=== PATIENT | female | born 1945 | race Caucasian/White ===

== ENCOUNTER 2024-12-15 16:18 | Emergency (ER) | payer MEDICARE, MEDICAID, SELFPAY ==
[2024-12-15 16:55] VITALS: BP 157/62; PULSE 74; RESP 16; TEMP 37.6; O2SAT 95; BMI 19.7
--- NOTE | 2024-12-15 17:06 | XR_ITS ---
Examination: CT brain head without contrast. 2-D sagittal coronal reconstructions Date and time of exam:December 15, 2024 1751 hours INDICATIONS: Multiple falls today with intravenous, head pain CTDI: vol (mGy):42.1 DLP: (mGycm):840 Technique: Multiple CT axial sections of the brain have been obtained, 5 mm slice thickness. Contrast has not been administered. 2-D sagittal, coronal reconstructions have been obtained Low dose protocols were performed. One or more of the following dose reduction techniques were used; automated exposure control, adjustment of the mA and/or KV according to patient size, use of iterative reconstruction technique. Findings: No significant ventricular enlargement. Hyperdense 13 x 19 x 13 mm anterior parafalcine mass consistent with meningioma Intra-axial or extra-axial hemorrhage density is not seen. No mass effect or midline shift Basal cisterns are not remarkable. Fourth ventricle is midline. Cranial vault intact. Impression: Negative for acute hemorrhage, mass effect or midline shift 13 x 19 x 13 mm anterior parafalcine mass consistent with meningioma, recommend brain MRI MRA follow-up PA and postcontrast
--- NOTE | 2024-12-15 17:06 | XR_ITS ---
Examination: Left knee 2 views TECHNIQUE: AP lateral left knee 2 views. Exam date and time: December 15, 2024, 1739 hours. INDICATIONS: Patient fell yesterday with injury to the knee, knee pain. FINDINGS: Moderate osteopenia. No fracture or dislocation. IMPRESSION: No fracture or dislocation.
--- NOTE | 2024-12-15 17:07 | PD.EDFALL ---
ED Fall Injury RME/HPI General Chief Complaint: Fall Stated Complaint: MULTIPLE FALLS, UNSTEADY, LEFT KNEE PAIN , Time Seen by Provider: 12/15/24 16:31 Arrival date/time: 12/15/24 16:18 RME / HPI RME / HPI Narrative: 79-year-old female patient came in for evaluation regarding fall. Patient is complaining of pain to the left knee, actually patient fell 3 times a day. Denies any neck pain patient is alert and oriented no LOC. No vomiting noted. Patient is ambulatory. Family is concerned about recent fall. Related Data Home Medications ?Medication ?Instructions ?Recorded ?Confirmed sertraline 50 mg tablet (Zoloft) 50 mg PO HS #0 tabs 01/24/14 08/15/22 esomeprazole magnesium 40 mg 40 mg PO QDAY 08/27/19 08/15/22 capsule,delayed release calcium 600 mg (as 1 tab PO BID 08/15/22 08/15/22 carbonate)-vitamin D3 10 mcg (400 unit) tablet oxybutynin chloride 5 mg tablet 1 tab PO BID 08/15/22 08/15/22 Allergies Allergy/AdvReac Type Severity Reaction Status Date / Time No Known Allergies Allergy Verified 12/15/24 16:19 Review of Systems Review of Systems Narrative Review of Systems: Review of system reviewed and within normal limits except mentioned in HPI ED Exam Narrative Physical exam: VITAL SIGNS: Reviewed. GENERAL APPEARANCE: Alert and interactive, follows commands, no acute distress, HEAD AND FACE: Non-traumatic. ENT: PERRL, pink conjunctivitis, eyelid no trauma, Mucous membrane moist. NECK: Supple, nontender, no nuchal rigidity. CHEST: No tenderness, no crepitus, no paradoxical movement, no retractions. LUNGS: Clear, well ventilated, symmetric, no rales, no wheezing, no ronchi, no stridor, good breath sounds bilaterally. HEART: Regular rate, regular rhythm, no murmur, no gallops. ABDOMEN: Soft, positive bowel sounds, nondistended, no guarding, nontender, no rebound, no masses, RECTAL: Deferred. GENITAL: Deferred. NEUROLOGICAL: Gross motor function intact sensory function intact, Appropriate for age. MUSCULOSKELETAL: low back nontender, full range of motion. EXTREMITIES: Left knee tenderness full range of motion. SKIN: Color pink, dry, no rash, no lacerations, no abrasions, no contusions. LYMPHATICS: Deferred. Course Quality Measures none Orders Category Date Time Status CT head/brain wo con Stat Exams 12/15/24 17:06 Completed XR knee limited LT 2V Stat Exams 12/15/24 17:06 Completed UA, C/S IF [Urinalysis, C/S if Indicated] Stat Lab 12/15/24 18:20 Received Vital Signs Vital signs: Vital Signs Temperature 99.7 F 12/15/24 16:55 Pulse Rate 74 12/15/24 16:55 Respiratory Rate 16 12/15/24 16:55 Blood Pressure 157/62 H 12/15/24 16:55 Pulse Oximetry (%) 95 12/15/24 16:55 Oxygen Delivery Method Room Air 12/15/24 16:55 Fall MDM Narrative MDM Narrative:: 79-year-old female patient came in for evaluation regarding fall. Patient is complaining of pain to the left knee, actually patient fell 3 times a day. Denies any neck pain patient is alert and oriented no LOC. No vomiting noted. Patient is ambulatory. Family is concerned about recent fall. CT scan of the head came back unremarkable except for incidental finding of possible meningioma. Results discussed with the patient and her caregiver and told him to follow-up closely with neurosurgeon. X-ray of the knee is negative for any acute pathology. Patient data External records reviewed:: None Clinical information provided by:: patient Social determinants that could affect healthcare access:: none Patient has the following chronic illnesses:: Dementia How is presenting disease/condition affected by chronic disease/condition?: exacerbated by Evaluation data The following diagnostics were reviewed and interpreted by me:: lab results and radiology exam(s) Lab and/or radiology exams considered but not ordered:: None Interpretation Summary: see results in MDM see results in MDM Medications / Prescriptions Medications or Prescriptions considered but not ordered:: None Medication administrations:: None Consultations Consultation(s) initiated? (list below): No Diagnosis Fall Differential Diagnosis: other (Fall, knee contusion knee fracture, intracranial bleed) Most likely diagnosis given after review of the tests above:: Fall, knee contusion, incidental finding meningioma brain Admission Indicated Admission indicated?: not indicated Admission Request Was there a request for admission?: No Admission Attestation Admission request attestation: Stable Disposition Plan Disposition Plan: Discharge Discharge Attestation Discharge Attestation: The patient and all family members were given an opportunity to ask questions and understood the discharge instructions. Discharge instructions specifically effects, indications for sooner follow up or return to the emergency department, and the expected course of current diagnosis. Patient condition: Stable Discharge Plan Plan Patient Disposition: HOME (Self Care) Disposition Comment: Stable Prescriptions/Referrals Prescriptions/Med Rec: No Action sertraline [Zoloft] 50 MG tablet 50 mg PO HS Qty: 0 esomeprazole magnesium 40 mg Capsule,Delayed Release(Dr/Ec) 40 mg PO QDAY oxybutynin chloride 5 mg tablet 1 tab PO BID Patient Comments: TAKE 1 TABLET BY MOUTH TWICE A DAY calcium carbonate-vitamin D3 600 mg-10 mcg (400 unit) tablet 1 tab PO BID Patient Comments: TAKE 1 TABLET BY MOUTH TWICE A DAY Referrals: No Primary/Family,Physician [Primary Care Provider] - In 1 week Problem List Clinical Impression: Fall, Contusion of knee, Meningioma Patient/Caregiver Discharge Instructions Discharge Activity: activity as tolerated Education Materials: ED Fall with Uncertain Cause Additional Instructions: Thank you for the opportunity for serving you today. You are stable for discharged . You are advised to: Follow-up with your PCP in 1 to 2 days Return to ED for worsening of symptoms Increase oral fluids As your PCP to refer you to a neurosurgeon regarding your possible meningioma incidental finding in CT scan. Print Language: Bulgarian Stand Alone Forms: Zina Award Info., Patient Portal Info Letter PA/BLANCO Supervising Physician GELA/BLANCO Supervising Physician: MD Hector
[2024-12-15 19:15] LABS: Collection Type, Urine Clean Catch
[2024-12-15 20:18] LABS: Bilirubin,Urine Negative (Negative); Blood,Urine 3+ (Negative); Clarity,Urine Clear (Clear/Hazy); Color,Urine Yellow (Lt Yel-Yel); Culture Indicated,Urine Yes; Glucose, Urine Negative (Negative); Hyaline Casts,Urine < 1 /hpf (0-1); Ketones,Urine Negative (Negative); Leukocyte Esterase,Urine Positive (Negative); Nitrite,Urine Negative (Negative); Protein,Urine 3+ (Neg - Trace); RBC,Urine 30 /hpf (0-3); Specific Gravity,Urine 1.028 (1.001-1.035); Squamous Epithelial Cell,Urine 2 /hpf (0-5); Urobilinogen,Urine Negative mg/dL (0.0-1.0); WBC,Urine 11 /hpf (0-5)
[2024-12-15 20:24] VITALS: RESP 18
== END 2024-12-15 20:25 | disposition home or self-care (01) ==
PROVIDERS: Nurse Practitioner Family; Emergency Provider Emergency Medicine
DX: S80.02XA Contusion of left knee, initial encounter (principal); D32.0 Benign neoplasm of cerebral meninges; W19.XXXA Unspecified fall, initial encounter; R29.6 Repeated falls
CPT/HCPCS: 70450; 73560; 81001; 87086; 99284

== ENCOUNTER 2024-12-16 11:08 | Emergency (ER) | payer MEDICARE, MEDICAID, SELFPAY ==
[2024-12-16 11:27] VITALS: BP 160/71; PULSE 68; RESP 18; TEMP 37.4; O2SAT 97; BMI 19.7
--- NOTE | 2024-12-16 11:33 | XR_ITS ---
Examination: CT brain head without contrast. 2-D sagittal coronal reconstructions Date and time of exam:December 16, 2024 at 1223 hours Comparison December 15, 2024 INDICATIONS: Patient fell today with injury to the head, head pain CTDI: vol (mGy):42.2 DLP: (mGycm):844 Technique: Multiple CT axial sections of the brain have been obtained, 5 mm slice thickness. Contrast has not been administered. 2-D sagittal, coronal reconstructions have been obtained Low dose protocols were performed. One or more of the following dose reduction techniques were used; automated exposure control, adjustment of the mA and/or KV according to patient size, use of iterative reconstruction technique. Findings: No significant ventricular enlargement. No change in 13 x 19 x 13 mm anterior parafalcine meningioma Intra-axial or extra-axial hemorrhage density is not seen. No mass effect or midline shift Basal cisterns are not remarkable. Fourth ventricle is midline. Cranial vault intact. Impression: Negative for acute hemorrhage, mass effect or midline shift
--- NOTE | 2024-12-16 11:34 | PD.EDRME ---
Rapid Medical Screening Exam E Arrival date/time: 12/16/24 11:08 79-year-old female with a history of developmentally delayed presents to the emergency room with a chief complaint of a fall that occurred this morning in which she hit the right side of her head. Patient was seen here yesterday as well for a fall that occurred yesterday. I have greeted and performed a focused initial assessment of this patient. A comprehensive ED assessment and evaluation of the patient, analysis of all test results, and completion of the medical decision making process will be conducted by additional ED providers. Chief Complaint: Fall Vital signs: Vital Signs Temperature 99.3 F 12/16/24 11:27 Pulse Rate 68 12/16/24 11:27 Respiratory Rate 18 12/16/24 11:27 Blood Pressure 160/71 H 12/16/24 11:27 Pulse Oximetry (%) 97 12/16/24 11:27 Oxygen Delivery Method Room Air 12/16/24 11:27 Vital signs reviewed by provider: Yes
--- NOTE | 2024-12-16 11:59 | PD.EDFALL ---
ED Fall Injury RME/HPI General Chief Complaint: Fall Stated Complaint: SEEN YESTERDAY FOR FALL; FELL AGAIN ON FACE Time Seen by Provider: 12/16/24 11:38 Arrival date/time: 12/16/24 11:08 RME / HPI RME / HPI Narrative: 12/16/24 11:08 79-year-old female with a history of developmentally delayed presents to the emergency room with a chief complaint of a fall that occurred this morning in which she hit the right side of her head. Patient was seen here yesterday as well for a fall that occurred yesterday. I have greeted and performed a focused initial assessment of this patient. A comprehensive ED assessment and evaluation of the patient, analysis of all test results, and completion of the medical decision making process will be conducted by additional ED providers. This section includes all my notes and documentations, including HPI, PE, and ED course.? Agustín Vera MD HPI: 79 year old female with history of schizoaffective disorder, developmental delay, presents to the ED brought in by caregiver for evaluation after fall today. Caregiver reports at baseline the patient is steady on her feet however in the last 2 days has had 4 falls, last fell this morning while in the restroom. Caregiver reports the patients roommate had witnessed the fall and stated she slipped, hitting her head on the bathroom floor. Evidently was also evaluated here last night after falling and was discharged home after labs and imaging was performed. Caregiver adds the patient just completed a course of antibiotics 2 days ago for a UTI. No other complaints. ROS: All negative except as documented in HPI. Physical Exam: General:? Alert and oriented.? No acute distress when remaining still.?? Eyes:? Conjunctivae and lids clear.? ENT:? No nasal congestion.??Pharynx normal. TM normal bilaterally. Neck:? Supple.? Heart:? RRR.? Lungs:? No respiratory distress.? Good air movement.? No rhonchi, wheezing, rales.?? Chest: No tenderness. Abdomen:? Soft and nontender.?? Legs:? No clubbing, cyanosis, edema.? Skin:? Warm and dry.??Facial ecchymoses noted, varying size and shape. Neuro:? Alert and oriented X 3.??Cranial nerves II through XII grossly normal. No peripheral motor deficits. Musculoskeletal: All major joints and bones are not tender with no limited range of motion. I reviewed all diagnostic test results. My interpretation of the EKG is?NSR (63 bpm) with no ST-T changes. My interpretation of the chest x-ray is No lobar pneumonia or pulmonary edema. My review of the head CT report is?negative for acute hemorrhage, mass effect or midline shift. My review of the cervicle spine CT report is?No acute cervical fracture. My review of the face CT report is?No acute facial fracture. My review of the lumbar spine CT report is?No acute lumbar fracture. My review of the thoracic spine CT report is?No acute thoracic fracture. My review of the chest/abdomen/pelvis CT report is No hemopericardium, pneumothorax pulmonary contusion or hemothorax. My review of the pelvic ultrasound report is right ovarian cyst. Blood tests and urine tests?remarkable for positive influenza and UTI. At this point, diagnoses include?influenza, UTI. Treatment here included?IV fluid and Rocephin and Tamiflu. She remained stable. Recommended a trial of outpatient treatment and more outpatient workup, including for the right ovarian cyst. Based on my best medical judgment, made decision no further evaluation or treatment indicated at this time.? Staff understands and agrees to the discharge instructions customized and printed, see below. Discharge Instructions from Dr. Vera printed for you: 1. After extensive evaluation, fortunately there is no very serious injury. Such as brain injury or broken neck or broken back or other broken bone or internal organ injury. And there is no life-threatening condition. Such as stroke or brain tumor or heart attack. 2. We have UTI and influenza. Which can make elderly very, very sick, causing them to fall. Cefdinir and Tamiflu as prescribed. And prednisone which will help her appetite and get her stronger. 3. So no standing or walking alone and no physical activity through 12/19/2024. 4. Regular nutritious meals. For good hydration, increase oral fluid and maintain clear urine. If dark or yellow, increase oral fluid. 5. See a private doctor on 12/20/2024 for recheck and further care. Ask to review all test results and official radiology reports, to make sure you receive all necessary follow-ups and monitoring, including urine culture results and ultrasound report from today. 6. Seek immediate medical care with worsening or with any concerns. Agustín Vera MD Related Data Home Medications ?Medication ?Instructions ?Recorded ?Confirmed sertraline 50 mg tablet (Zoloft) 50 mg PO HS #0 tabs //08/15/22 esomeprazole magnesium 40 mg 40 mg PO QDAY 08/27/19 08/15/22 capsule,delayed release calcium 600 mg (as 1 tab PO BID 08/15/22 08/15/22 carbonate)-vitamin D3 10 mcg (400 unit) tablet oxybutynin chloride 5 mg tablet 1 tab PO BID 08/15/22 08/15/22 Previous Rx's ?Medication ?Instructions ?Recorded cefdinir 300 mg capsule 300 mg PO BID #14 caps 12/16/24 oseltamivir 75 mg capsule (Tamiflu) 75 mg PO BID 5 days #10 caps 12/16/24 prednisone 20 mg tablet 20 mg PO QDAY 5 days #5 tabs 12/16/24 Allergies Allergy/AdvReac Type Severity Reaction Status Date / Time No Known Allergies Allergy Verified 12/16/24 11:10 Review of Systems Review of Systems Systems Reviewed: All systems reviewed, normal except as documented Past Medical History Past Medical History GASTROINTESTINAL: Positive Gastrointestinal Disorders (Dysphagia) GENITOURINARY: Positive Genitourinary Disorders (incont.) MUSCULOSKELETAL: Positive Musculoskeletal Disorders and Osteoporosis ENT: Positive Cataracts and Deafness (wears hearing aids) OTHER HISTORY: Positive Developmental Delay Surgical History SURGICAL: Negative Cardiac Surgery or Endocrine Surgery Social History SMOKING STATUS: Never smoker ED Exam Narrative Physical exam: As noted in HPI Course Quality Measures none Orders Category Date Time Status Bedside COVID-19 Antigen Test NOW Care 12/16/24 12:11 Completed Bedside Influenza A&B Antigen Test NOW Care 12/16/24 12:[address] Screening NOW Care 12/16/24 12:12 Completed EKG (ED ONLY) *Do not use* NOW Care 12/16/24 11:33 Completed Saline [Insert IV] NOW Care 12/16/24 12:[address] cervical spine wo con Stat Exams 12/16/24 12:[address] chest abdomen pelvis wo Stat Exams 12/16/24 12:[address] facial bones wo con Stat Exams 12/16/24 12:[address] head/brain wo con Stat Exams 12/16/24 11:[address] lumbar spine wo con Stat Exams 12/16/24 12:[address] thoracic spine wo con Stat Exams 12/16/24 12:12 Completed EKG (ED Only) Stat Exams 12/16/24 11:33 Ordered US pelvic complete Stat Exams 12/16/24 13:37 Completed XR chest 1V portable Stat Exams 12/16/24 12:12 Completed B-Type Natriuretic Peptide Stat Lab 12/16/24 13:16 Completed Blood Culture (Lab) Stat Lab 12/16/24 13:16 Received C-Reactive Protein Stat Lab 12/16/24 13:16 Completed CBC Stat Lab 12/16/24 13:16 Completed Comprehensive Metabolic Panel Stat Lab 12/16/24 13:16 Completed Lactate (Lactic Acid) Stat Lab 12/16/24 13:16 Completed Magnesium Stat Lab 12/16/24 13:16 Completed Partial Thromboplastin Time Stat Lab 12/16/24 13:16 Completed Procalcitonin Stat Lab 12/16/24 13:16 Completed Prothrombin Time with INR Stat Lab 12/16/24 13:16 Completed Sed Rate (ESR) Stat Lab 12/16/24 13:16 Completed Thyroid Stimulating Hormone Stat Lab 12/16/24 13:16 Completed Troponin I Stat Lab 12/16/24 13:16 Completed Oseltamivir [Tamiflu] Med 12/16/24 14:20 Discontinued 75 mg PO X1 ONE Sodium Chloride 0.9% 1000 ml [Ns] 1,000 ml Med 12/16/24 12:10 Discontinued IV 999 mls/hr cefTRIAXone [Rocephin] 1,000 mg Med 12/16/24 12:10 Discontinued Sodium Chloride 0.9% (P) [Ns 0.9% (P)] 50 ml IV X1 Vital Signs Vital signs: Vital Signs Temperature 99.3 F 12/16/24 11:27 Pulse Rate 68 12/16/24 11:27 Respiratory Rate 18 12/16/24 11:27 Blood Pressure 160/71 H 12/16/24 11:27 Pulse Oximetry (%) 97 12/16/24 11:27 Oxygen Delivery Method Room Air 12/16/24 11:27 Pulse ox is 97% on room air which is adequate. Fall MDM Narrative MDM Narrative:: Agustina Coats am scribing for and in the presence of Dr. Vera. Patient data External records reviewed:: [facility] previous records (I reviewed yesterdays ED visit ) Clinical information provided by:: industrial technology teacher Social determinants that could affect healthcare access:: housing (custodial resident ) Patient has the following chronic illnesses:: schizoaffective disorder, developmental delay How is presenting disease/condition affected by chronic disease/condition?: uneffected by Evaluation data The following diagnostics were reviewed and interpreted by me:: lab results, radiology exam(s) and EKG tracing(s) (My interpretation of the EKG: NSR (63 bpm) with no ST-T changes. Agustín Vera MD) Lab and/or radiology exams considered but not ordered:: None Interpretation Summary: Influenza and UTI and right ovarian cyst Medications / Prescriptions Medications or Prescriptions considered but not ordered:: None Medication administrations:: Medication Administration History Discontinued Medications Ceftriaxone Sodium 1,000 mg/ (Sodium Chloride) 50 mls @ 100 mls/hr IV X1 ONE Stop: 12/16/24 12:39 Last Infusion: 12/16/24 14:03 Dose: Infused Documented By: Admin: 12/16/24 13:33 Dose: 100 mls/hr Documented By: JOSSELIN Sodium Chloride (Ns) 1,000 mls @ 999 mls/hr IV .Q1H1M ONE Stop: 12/16/24 13:10 Last Infusion: 12/16/24 15:39 Dose: Infused Documented By: Admin: 12/16/24 13:33 Dose: 999 mls/hr Documented By: JOSSELIN Oseltamivir Phosphate (Oseltamivir 75 Mg Capsule) 75 mg PO X1 ONE Stop: 12/16/24 14:21 Last Admin: 12/16/24 14:35 Dose: 75 mg Documented By: CAROL Patient given ceftriaxone, IV fluids, and oseltamivir Consultations Consultation(s) initiated? (list below): No Diagnosis Fall Differential Diagnosis: syncope, compression fracture, concussion with loss of consciousness, concussion without loss of consciousness and other (CVA, MD, UTI, pneumonia, sepsis) Most likely diagnosis given after review of the tests above:: Influenza, UTI Admission Indicated Admission indicated?: not indicated Explain why admission is indicated or not indicated:: Admission criteria not met Admission Request Was there a request for admission?: No Disposition Plan Disposition Plan: Discharge Discharge Attestation Discharge Attestation: The patient and all family members were given an opportunity to ask questions and understood the discharge instructions. Discharge instructions specifically effects, indications for sooner follow up or return to the emergency department, and the expected course of current diagnosis. Patient condition: Stable Discharge Plan Plan Patient Disposition: HOME (Self Care) Prescriptions/Referrals Prescriptions/Med Rec: New oseltamivir [Tamiflu] 75 mg capsule 75 mg PO BID 5 Days Qty: 10 0RF cefdinir 300 mg capsule 300 mg PO BID Qty: 14 0RF prednisone 20 mg tablet 20 mg PO QDAY 5 Days Qty: 5 0RF Taper: Prednisone Taper 20 mg DAILY for 2 Days and 0 Hour 10 mg DAILY for 2 Days and 0 Hour 5 mg DAILY for 7 Days and 0 Hour No Action sertraline [Zoloft] 50 MG tablet 50 mg PO HS Qty: 0 esomeprazole magnesium 40 mg Capsule,Delayed Release(Dr/Ec) 40 mg PO QDAY oxybutynin chloride 5 mg tablet 1 tab PO BID Patient Comments: TAKE 1 TABLET BY MOUTH TWICE A DAY calcium carbonate-vitamin D3 600 mg-10 mcg (400 unit) tablet 1 tab PO BID Patient Comments: TAKE 1 TABLET BY MOUTH TWICE A DAY Referrals: No Primary/Family,Physician [Primary Care Provider] - In 1 week Problem List Clinical Impression: Influenza, UTI (urinary tract infection) Patient/Caregiver Discharge Instructions Discharge Activity: activity as tolerated Education Materials: ED Influenza (Adult), ED CYSTITIS Female Adult Additional Instructions: Discharge Instructions from Dr. Vera printed for you: 1. After extensive evaluation, fortunately there is no very serious injury. Such as brain injury or broken neck or broken back or other broken bone or internal organ injury. And there is no life-threatening condition. Such as stroke or brain tumor or heart attack. 2. We have UTI and influenza. Which can make elderly very, very sick, causing them to fall. Cefdinir and Tamiflu as prescribed. And prednisone which will help her appetite and get her stronger. 3. So no standing or walking alone and no physical activity through 12/19/2024. 4. Regular nutritious meals. For good hydration, increase oral fluid and maintain clear urine. If dark or yellow, increase oral fluid. 5. See a private doctor on 12/20/2024 for recheck and further care. Ask to review all test results and official radiology reports, to make sure you receive all necessary follow-ups and monitoring, including urine culture results and ultrasound report from today. 6. Seek immediate medical care with worsening or with any concerns. Print Language: Brazilian Stand Alone Forms: Zina Award Info., Patient Portal Info Letter
--- NOTE | 2024-12-16 12:12 | XR_ITS ---
Examination: AP chest single view TECHNIQUE: AP portable upright chest single view Exam date and time: December 16, 2024 1255 hours INDICATIONS: Shortness of breath today FINDINGS: Normal heart size. Mild vascular congestion. No lobar pneumonia or pulmonary edema. Stable bilateral pleural thickening compared with June 26, 2021 IMPRESSION: No lobar pneumonia or pulmonary edema
--- NOTE | 2024-12-16 12:12 | XR_ITS ---
Examination: CT maxillofacial, without intravenous contrast. 2-D sagittal reconstructions. 3-D reconstructions. Date and time of exam:December 16, 2024 1223 hours INDICATIONS: Patient fell today with injury to the face, facial pain CTDI: vol (mGy):12.8 DLP: (mGycm):218 Technique: Multiple axial images of maxillofacial region, 3.0 mm slice thickness. 2-D sagittal and coronal reconstructions. 3-D reconstructions. Low dose protocols were performed. One or more of the following dose reduction techniques were used; automated exposure control, adjustment of the mA and/or KV according to patient size, use of iterative reconstruction technique. Findings: Frontal bone frontal sinuses intact Orbital rims intact No acute nasal bone fracture No depression zygomatic arches. Maxilla and the mandible intact. Soft tissue swelling anterior to the right optic globe, the optic globes appear intact IMPRESSION: No acute facial fracture
--- NOTE | 2024-12-16 12:12 | XR_ITS ---
Examination: CT thoracic spine, without contrast. 2-D sagittal reconstructions. 2-D coronal reconstructions. 3-D reconstructions. Date and time of exam:December 16, 2024 1228 hours INDICATIONS: Patient fell today with injury to the mid back and mid back pain CTDI: vol (mGy):10.4 DLP: (mGycm):295 Technique: Multiple 1.25 mm axial sections of the thoracic spine without intravenous contrast have been obtained. 2-D sagittal and coronal reconstructions have been obtained. 3-D reconstructions have been obtained. Low dose protocols were performed. One or more of the following dose reduction techniques were used; automated exposure control, adjustment of the mA and/or KV according to patient size, use of iterative reconstruction technique. Findings: Prominent osteopenia No acute thoracic vertebral body compression fracture Thoracic pedicles laminated transverse and posterior spinous processes appear intact No focal thoracic disc protrusion IMPRESSION: No acute thoracic fracture
--- NOTE | 2024-12-16 12:12 | XR_ITS ---
Examination: CT cervical spine without contrast 2-D sagittal reconstructions 2-D coronal reconstructions 3-D reconstructions. Exam date and time:December 16, 2024 1232 hours INDICATIONS: Patient fell today with into the neck, neck pain CTDI:vol (mGy) 11.1 DLP: (mGycm) 236 Technique: Multiple 2 mm axial sections of the cervical spine have been obtained. The coronal and sagittal reconstructions have been obtained. 3-D reconstructions have been obtained. Low dose protocols were performed. One or more of the following dose reduction techniques were used; automated exposure control, adjustment of the mA and/or KV according to patient size, use of iterative reconstruction technique. Findings: Axial sections demonstrate intact base of the skull. C1 exhibit satisfactory relationship to the odontoid. No acute cervical vertebral body fracture seen. Alignment posterior spinous processes satisfactory. Impression: No acute cervical fracture.
--- NOTE | 2024-12-16 12:12 | XR_ITS ---
Examination: CT lumbar spine, without contrast. 2-D sagittal reconstructions. 2-D coronal reconstructions. 3-D reconstructions. Date and time of exam:December 16, 2024 1228 hours INDICATIONS: Patient fell today with injury to the lower back, lower back pain CTDI: vol (mGy):13.2 DLP: (mGycm):407 Technique: Multiple 1.25 mm axial sections of the lumbar spine without intravenous contrast have been obtained. 2-D sagittal and coronal reconstructions have been obtained. 3-D reconstructions have been obtained. Low dose protocols were performed. One or more of the following dose reduction techniques were used; automated exposure control, adjustment of the mA and/or KV according to patient size, use of iterative reconstruction technique. Findings: Severe osteopenia No thoracic vertebral body compression fracture Thoracic pedicles, laminae, transverse and posterior spinous processes intact L5-S1 2 mm central lumbar disc bulge L4-L5 5 mm central lumbar disc bulge L3-L4 no disc protrusion L2-L3 no disc protrusion IMPRESSION: No acute lumbar fracture
--- NOTE | 2024-12-16 12:15 | XR_ITS ---
Examination: CT chest, without intravenous contrast. CT abdomen, without intravenous contrast. CT pelvis, without intravenous contrast. 2-D sagittal and coronal reconstructions. 3-D reconstructions. Date and time of exam:December 16, 2024 1228 hours INDICATIONS: Patient fell today with injury to the chest and abdomen, chest pain abdomen pain CTDI vol (mgy) 6.02 DLP (MGycm)402 Technique: Multiple CT images, 3.0 mm slice thickness, obtained chest, abdomen, pelvis, with the high-resolution 64 slice scanner.. Sagittal and coronal 2-D reconstructions are obtained. 3-D reconstructions Low dose protocols were performed. One or more of the following dose reduction techniques were used; automated exposure control, adjustment of the mA and/or KV according to patient size, use of iterative reconstruction technique. Findings: Thoracic aorta pulmonary arteries appear intact on this noncontrast study No hemopericardium No pneumothorax pulmonary contusion or hemothorax 3 mm pulmonary nodule left lower lobe image 161 4 mm pulmonary nodule right lower lobe image 165 The manubrium and the body the sternum are intact No thoracic fracture Rib detail is significantly degraded by patient motion No rib fractures noted No liver splenic or renal laceration, no perinephric hematoma No gallstones No pancreatic mass Abdominal aortic calcification aorta appears intact No free blood in the abdomen Negative for pneumoperitoneum No bowel obstruction Colonic diverticulosis Right pelvic cystic mass 7.7 cm Atrophic uterus Urinary bladder intact No lumbar fracture Sacral segments. Axial image 379 suspicious for nondisplaced fracture right inferior pubic ramus Hips intact IMPRESSION: Noncalcified pulmonary nodules as above, with this study as baseline recommend 6 month follow-up CT chest without contrast Thoracic aorta pulmonary arteries intact No hemopericardium, pneumothorax pulmonary contusion or hemothorax No abdominal parenchymal laceration Abdominal aorta intact No free blood in the abdomen or pelvis 7.7 cm right pelvic cystic mass, consider pelvic sonography follow-up Suspicious for nondisplaced fracture right inferior pubic ramus, the appearance should be clinically correlated
[2024-12-16 13:29] LABS: Lactate (Lactic Acid) 0.7 mMol/L (0.4-2.0)
[2024-12-16] MEDS: SODIUM CHLORIDE 0.9% 1000 ML 1,000 ML 999 ML IV (13:33)
[2024-12-16] MEDS: cefTRIAXone 1,000 MG in SODIUM CHLORIDE 0.9% (P) 50 ML 100 MG IV (13:33)
[2024-12-16 13:35] LABS: Basophils % (Auto) 0 % (0-2.5); Eosinophils # (Auto) 0.1 Thou/mm3 (0.0-0.5); Eosinophils % (Auto) 1 % (0-10); Hematocrit 34.3 % (36.0-46.0); Hemoglobin 11.2 g/dL (12.0-16.0); Immature Granulocytes % (Auto) 0 % (0-0); Immature Granulocytes Auto 0.02 Thou/mm3 (0.00-0.00); Lymphocytes # (Auto) 1.2 Thou/mm3 (1.0-4.8); Lymphocytes % (Auto) 22 % (10-50); Mean Corpuscular HGB Conc 32.7 g/dl (31.0-37.0); Mean Corpuscular Hemoglobin 27.7 pg (25.0-35.0); Mean Corpuscular Volume 85 fL (80-100); Monocytes # (Auto) 0.4 Thou/mm3 (0.0-0.8); Monocytes % (Auto) 8 % (0-12); Neutrophils # (Auto) 3.7 Thou/mm3 (1.8-7.7); Neutrophils % (Auto) 68 % (37-80); Nucleated Red Blood Cell % 0 /100 WBC (0); Platelet Count 131 Thou/mm3 (140-440); RDW Standard Deviation 44.5 fL (36.4-46.3); Red Blood Count 4.05 Miln/mm3 (4.00-5.20); White Blood Count 5.4 Thou/mm3 (3.6-11.0)
--- NOTE | 2024-12-16 13:37 | XR_ITS ---
Examination: Pelvic ultrasound, transabdominal, complete Technique: Transabdominal ultrasound of the pelvis performed using grayscale imaging Date and time of exam: December 16, 2024 1400 hours INDICATIONS: Pelvic cyst on CT examination today FINDINGS: Uterus 3.4 x 1.4 x 2.7 cm Endometrial stripe 0.8 cm, fluid-filled Right ovary 8.5 x 5.2 x 5.6 cm Right ovarian cyst 7.7 x 4.3 x 4.6 cm with minimal internal debris Left ovary 2.5 x 1.7 x 2.0 cm arterial flow IMPRESSION: Large right ovarian cyst, recommend MRI pelvis follow-up pre and postcontrast, elective
--- NOTE | 2024-12-16 13:46 | PC.NURSE ---
Patient presents to ED with c/o of fall x 4 since yesterday. Patient caregiver at bedside, informed RN that patient is ambulatory without assist, alert and oriented, with hx of some mental retardation. Noted right side face bruising with and black eye. Patient denies loc and does caregiver. Patient and caregiver updated with plan of care.
[2024-12-16 13:51] LABS: Sed Rate (ESR) 34 mm/hr (0-30)
[2024-12-16 13:52] LABS: Partial Thromboplastin Time 27.9 Seconds (22.0-36.0)
[2024-12-16 13:56] VITALS: BP 172/68; PULSE 70; RESP 20; TEMP 36.9; O2SAT 98
[2024-12-16 14:05] LABS: Alanine Aminotransferase 8 U/L (10-49); Albumin, Serum 4.4 gm/dL (3.4-4.8); Albumin/Globulin Ratio 1.6 (1.2-2.2); Alkaline Phosphatase 39 U/L (46-116); Anion Gap 6 (7-16); Aspartate Amino Transferase 18 U/L (0-34); BUN/Creatinine Ratio 21 Ratio (12-20); Bilirubin,Total 0.5 mg/dL (0.3-1.2); Blood Urea Nitrogen 17 mg/dL (9-23); Calcium 9.2 mg/dL (8.3-10.6); Calcium (Corrected) 9.2 mg/dL (8.5-10.1); Carbon Dioxide 30.7 mMol/L (20.0-31.0); Chloride 97 mMol/L (98-107); Creatinine (Component) 0.8 mg/dL (0.6-1.3); Estimated Creatinine Clearance 42.7 mL/min (>60); Globulin 2.7 gm/dL (2.3-3.5); Glucose 102 mg/dL (74-106); Magnesium 1.7 mg/dL (1.6-2.6); Osmolality,Calculated 269 (275-295); Potassium 3.7 mMol/L (3.4-5.1); Procalcitonin 0.08 ng/ml (0.0-0.49); Sodium 134 mMol/L (136-145); Thyroid Stimulating Hormone 1.61 uIU/mL (0.55-4.78); Total Protein 7.1 gm/dL (5.7-8.2); Troponin I < 0.020 ng/mL (0.0-0.045); eGFR > 60 See Note
[2024-12-16 14:25] LABS: B-Type Natriuretic Peptide 116 pg/mL (0-100)
[2024-12-16] MEDS: OSELTAMIVIR 75 MG CAPSULE PO (14:35)
[2024-12-16 15:25] LABS: C-Reactive Protein < 0.4 mg/dL (0.0-0.9)
[2024-12-16 16:12] VITALS: BP 161/89; PULSE 75; RESP 16; O2SAT 95
== END 2024-12-16 16:12 | disposition home or self-care (01) ==
PROVIDERS: Nurse Practitioner Family; Emergency Provider Emergency Medicine
DX: J11.1 Influenza due to unidentified influenza virus with other respiratory manifestations (principal); N39.0 Urinary tract infection, site not specified; S00.83XA Contusion of other part of head, initial encounter; N83.201 Unspecified ovarian cyst, right side; F25.9 Schizoaffective disorder, unspecified; R29.6 Repeated falls; W01.0XXA Fall on same level from slipping, tripping and stumbling without subsequent striking against object, initial encounter
CPT/HCPCS: 36415; 70450; 70486; 71045; 71250; 72125; 72128; 72131; 74176; 76856; 80053; 81001; 83605; 83735; 83880; 84145; 84443; 84484; 85025; 85610; 85652; 85730; 86140; 87040; 87400; 87811; 93005; 96361; 96365; 99284; J0696; J7030; J7050; A9270

== ENCOUNTER → 2024-12-24 | Outpatient (CLI) | payer MEDICARE, MEDICAID, SELFPAY ==
--- NOTE | 2024-12-24 13:50 | XR_ITS ---
Examination: Bone densitometry Date and time of exam:December 24, 2024 1517 hours INDICATIONS: Menopause age 53, personal history osteoporosis Technique: Lumbar spine and hip total bone mineralization values of an calculated. Peak reference and age match control results have been displayed. Findings: Lumbar spine total bone mineralization is0.645 gm/cm2. This is 3.7 standard deviations below peak reference. This is 0.9 standard deviations below age-matched controls. Hip total bone mineralization is 0.572 gm/cm2 This is 3.0 standard deviations below peak reference. This is 0.9 standard deviations below age-matched controls Impression: There is osteoporosis based on lumbar spine measurements. There is osteoporosis based on hip measurements Lumbar mineralization is decreased 5.3% compared with January 17, 2020 Hip mineralization is decreased 2.5% compared with January 17, 2020
== END | disposition home or self-care (01) ==
LOC: CDIM 13:55
PROVIDERS: PCP Nurse Practitioner Family; Referring Provider Nurse Practitioner Family; Visit Provider Nurse Practitioner Family
DX: M81.0 Age-related osteoporosis without current pathological fracture (principal)
CPT/HCPCS: 77080

== ENCOUNTER → 2025-01-21 | Outpatient (CLI) | payer MEDICARE, MEDICAID, SELFPAY ==
--- NOTE | 2025-01-21 16:28 | XR_ITS ---
Examination: AP pelvis 2 views Technique: AP pelvis hips in neutral position, AP pelvis hips abduction position 2 views Exam date and time: 2024 1640 hrs. Indications: Hip pain today. Findings: Prominent osteopenia Moderate narrowing hip joints No right or left hip fracture Fractures right superior inferior pubic rami without displacement Bilateral greater trochanteric bursitis hips Impression: No hip fractures As clinically warranted, consider CT scan pelvis follow-up to best assess acuity of fractures, nondisplaced, right superior inferior pubic rami
== END | disposition home or self-care (01) ==
LOC: CDIM 16:24
PROVIDERS: PCP Nurse Practitioner; Referring Provider Nurse Practitioner; Visit Provider Nurse Practitioner
DX: S32.591D Other specified fracture of right pubis, subsequent encounter for fracture with routine healing (principal); X58.XXXD Exposure to other specified factors, subsequent encounter
CPT/HCPCS: 72170

== ENCOUNTER → 2025-02-09 | Outpatient (CLI) | payer MEDICARE, MEDICAID, SELFPAY ==
[2025-02-09 12:41] LABS: Alanine Aminotransferase 8 U/L (10-49); Albumin/Globulin Ratio 1.7 (1.2-2.2); Alkaline Phosphatase 40 U/L (46-116); Anion Gap 7 (7-16); Aspartate Amino Transferase 18 U/L (0-34); BUN/Creatinine Ratio 26 Ratio (12-20); Bilirubin,Total 0.4 mg/dL (0.3-1.2); Blood Urea Nitrogen 21 mg/dL (9-23); Calcium 8.9 mg/dL (8.3-10.6); Calcium (Corrected) 8.9 mg/dL (8.5-10.1); Carbon Dioxide 29.9 mMol/L (20.0-31.0); Chloride 105 mMol/L (98-107); Creatinine (Component) 0.8 mg/dL (0.6-1.3); Globulin 2.3 gm/dL (2.3-3.5); Glucose 92 mg/dL (74-106); Osmolality,Calculated 286 (275-295); Potassium 4.1 mMol/L (3.4-5.1); Sodium 142 mMol/L (136-145); Total Protein 6.3 gm/dL (5.7-8.2); eGFR > 60 See Note
== END | disposition home or self-care (01) ==
LOC: COPL 11:42
PROVIDERS: PCP Nurse Practitioner; Referring Provider Nurse Practitioner; Visit Provider Nurse Practitioner
DX: Z01.89 Encounter for other specified special examinations (principal)
CPT/HCPCS: 36415; 80053

== ENCOUNTER → 2025-02-11 | Outpatient (CLI) | payer MEDICARE, MEDICAID, SELFPAY ==
--- NOTE | 2025-02-11 10:00 | XR_ITS ---
Examination: MRI pelvis with intravenous contrast. MRI pelvis without intravenous contrast. Date and time of exam: February 03, 2025 1019 hours INDICATIONS: Pelvic sonogram December 16, 2024 right ovarian cyst 7.7 x 4.3 x 4.6 cm Technique: Multiple axial, sagittal and coronal sections of the pelvis obtained. Transverse images, TR 6020, TE 107. T1 weighted transverse images, TR 582, TE 9.5. T2-weighted sagittal images, TR 4000, TE 105. T2-weighted sagittal images, TR 4000, TE 5. Coronal images, TR 4210, TE 107. Axial and coronal images are obtained post 19 cc intravenous injection, gadolinium. Findings: Atrophic uterus with endometrial stripe 5 mm Septated right ovarian cyst 6.5 x 4.3 cm with no mural enhancement Left ovary not enlarged Contracted urinary bladder Adequate marrow signal IMPRESSION: Septated right ovarian cyst 6.5 x 4.3 cm, differential would include complex cyst, cystadenoma, clinical correlation advised
== END | disposition home or self-care (01) ==
PROVIDERS: PCP Nurse Practitioner; Referring Provider Nurse Practitioner; Visit Provider Nurse Practitioner
DX: N83.291 Other ovarian cyst, right side (principal)
CPT/HCPCS: 72197; A9579

== ENCOUNTER 2025-04-05 09:40 | Outpatient (AMB) | payer MEDICARE, MEDICAID, SELFPAY ==
--- NOTE | 2025-04-05 10:06 | ORTHONT_ITS ---
Vital signs 04/05/25 10:09 Height 1.57 m Height Method Stated Weight 45.926 kg Weight Measurement Method Standing Scale BMI 18.6 BP 186/61 H Blood Pressure Source Automatic Cuff Blood Pressure Location Left Upper Arm Position Sitting Respiration 18 Pulse 63 Pulse Source Monitor Temp 97.8 F Temp Source Temporal Artery Scan Pulse Oximetry (%) 97 Oxygen Delivery Method Room Air Med/Allergies Allergies & Medications Allergies No Known Allergies Allergy (Verified 04/05/25 10:09) Medication Reconciliation sertraline 50 mg tablet (Zoloft) 50 mg PO HS #0 tabs 01/24/14 [History Confirmed 04/05/25] calcium 600 mg (as carbonate)-vitamin D3 10 mcg (400 unit) tablet 1 tab PO BID 08/15/22 [History Confirmed 04/05/25] oxybutynin chloride 5 mg tablet 1 tab PO BID 08/15/22 [History Confirmed 0 04/05/25] omeprazole 40 mg capsule,delayed release 40 mg PO QDAY 04/05/25 [History Confirmed 04/05/25] Exam Exam Patient is in no acute distress and is cooperative with the examination today. Breathing is nonlabored. In no respiratory distress. Patient has no paraspinal tenderness. Spinal deformity cannot be appreciated. The gait of the patient is nonantalgic Bilateral extremities were evaluated and demonstrates sensation intact to light touch. Palpable pedal pulses are present. No significant edema is present. Bilateral knees were examined and the patient has full strength and range of motion.. The left hip was examined. Patient was able to flex to 90 degrees, adduct to 30 degrees, abduct to 40 degrees, internally rotate to 20 degrees, and externally rotate to 20 degrees. Patient has a negative logroll. Stinchfield is negative. The patient is nontender diffusely to touch. The right hip was examined. Patient was able to flex to 90 degrees, adduct to 30 degrees, abduct to 40 degrees, internally rotate to 20 degrees, and externally rotate to 20 degrees. Patient has a negative logroll. The stinchfield is negative. X-rays demonstrate a healed right inferior pubic ramus fracture Assessment and Plan Problem List (1) Inferior pubic ramus fracture: Status: Acute Plan: Patient is an 80-year-old female with a right inferior pubic ramus fracture. She has no pain on the right hip. It appears to be well-healed on x-ray The patient is doing well and has no pain. I do not think she needs physical therapy at this time Advanced Care Planning Discussion Advance care planning discussed with:: patient and other Office Procedures GNS Level of Care Nursing/Assessment Patient Status: Initial/New Patient Nursing Assessment/Reassesment: Medication Reconciliation, Update PMH in EMR and Vital Signs Coordination of Care: Complex Care and Chronic Disease 1-5, Education Complex Pt/Fam, Consent,records obtained, informed consent, 1 Ins Authorization, Lab and Imaging orders, Results/Orders obtained and Staff clarify orders New Patient Charge New Patient Point Assignment: 1124 New Patient Point Charge: APPLICATION ARCHITECT MANAGER Level 4 ([id number]) MA Intake Visit Data Collection New Patient or Established: New Patient (never been to [facility]) Reason for Visit:: RIGHT PUBIC FRACTURE Seen by Clinical Staff ONLY (RN/MA): No PCP or OBGYN visit in last 3 months: Yes Hx Now: No Do You Feel Safe at Home: Yes Authorities Contacted: N/A Questionairres Past Medical History Past Medical History Have you ever been diagnosed with any of the following: Neurological Problems Seizures: No Cardiology Problems Congestive Heart Failure: No Hypertension: No Respiratory Problems Chronic Obstructive Pulmonary Disease (COPD): No Asthma: No Sleep Apnea: No Smoking: No Smoking Exposure: No Genital/Urinary Problems Renal Disease: No Musculoskeletal Problems Osteoporosis: Yes Head,Eye,Nose,Throat Problems Cataracts: Yes Deafness: Yes (wears hearing aids) Endocrine Problems Diabetes Mellitus Type 1: No Diabetes Mellitus Type 2: No Blood Problems Anemia: No Other Problems Hospitalization: No Developmental Delay: Yes Falls: No Blood Transfusions: No Anesthesia Reactions: No Cancer: No Subjective Visit Visit for: new patient Immunization / Flu Flu Vaccine in the Last 12 Months: No Flu Vaccine Exclusion Criteria: No Exclusion Criteria History of Present Illness Chief complaint: Right hip pain Zohreh is a pleasant 80-year-old female with a right inferior pubic ramus fracture. She has no pain at all. This was likely from a fall in November. She has been weightbearing. Pain Pain level (0-10): 0 Associated signs & symptoms: none Ambulatory data Ambulatory device: none Treatments Improvement with previous injections: No Improvement with PT: No Improvement with NSAIDS: no Review of Systems Review of Systems: All systems negative unless otherwise noted in HPI.
[2025-04-05 10:09] VITALS: BP 186/61; PULSE 63; RESP 18; TEMP 36.6; O2SAT 97; BMI 18.6
== END 2025-04-05 10:26 | disposition home or self-care (01) ==
LOC: HODSRG 09:40
PROVIDERS: PCP Nurse Practitioner; Referring Provider Nurse Practitioner; Supervising Provider Orthopaedic Surgery Adult Reconstructive Orthopaedic Surgery; Visit Provider Orthopaedic Surgery Adult Reconstructive Orthopaedic Surgery
DX: S32.591D Other specified fracture of right pubis, subsequent encounter for fracture with routine healing (principal); X58.XXXD Exposure to other specified factors, subsequent encounter
CPT/HCPCS: 99204; G0463

== ENCOUNTER → 2025-06-08 | Outpatient (CLI) | payer MEDICARE, MEDICAID, SELFPAY ==
--- NOTE | 2025-06-08 09:15 | XR_ITS ---
Examination: Diagnostic digital mammography, bilateral Computer aided detection 3-D breast Tomosynthesis, bilateral Date and time of exam: June 08, 2025 0906 hours Compared to mammograms dating to January 11, 2019 INDICATIONS: Patient states no complaints at this time Technique: Nonmagnified MLO, CC views of the breasts to been obtained, reconstructed from 3-D Tomosynthesis images. R2 computer aided detection program utilized for evaluation of suspicious masses and/or abnormal calcifications. 3-D Tomosynthesis images obtained. Findings: Scattered areas of fibroglandular density 5 mm focal asymmetry left breast CC view, slightly inner left breast posterior depth Impression: BI-RADS Category 0: Incomplete: Need additional imaging relation Recommend follow-up spot tomographic CC view of 5 mm focal asymmetry slightly inner left breast posterior depth as well as spot compression MLO view upper left breast on left breast sonography to complete the workup
== END | disposition home or self-care (01) ==
LOC: CDIM 08:53
PROVIDERS: PCP Nurse Practitioner; Referring Provider Nurse Practitioner; Visit Provider Nurse Practitioner
DX: N64.89 Other specified disorders of breast (principal); R92.8 Other abnormal and inconclusive findings on diagnostic imaging of breast
CPT/HCPCS: 77062; 77066; G0279

== ENCOUNTER → 2025-07-26 | Outpatient (CLI) | payer MEDICARE, MEDICAID, SELFPAY ==
--- NOTE | 2025-07-26 09:00 | XR_ITS ---
Examination: Breast ultrasound, unilateral, left complete Date and time of exam: July 26, 2025 0919 hours INDICATIONS: Mammogram June 08, 2025 5 mm focal asymmetry left breast CC view Technique: Real-time montano scale ultrasonographic imaging performed left breast including all 4 quadrants as well as nipple retroareolar and axillary region. Findings: No cystic or solid mass IMPRESSION: BI-RADS Category 1: Negative study
--- NOTE | 2025-07-26 09:30 | XR_ITS ---
Examination: Diagnostic digital mammography, unilateral, left Computer aided detection 3-D breast Tomosynthesis, unilateral Date and time of exam: July 26, 2025 0936 hours INDICATIONS: 5 mm focal asymmetry posterior depth left breast CC view on mammogram June 08, 2025 Technique: Nonmagnified MLO, CC views of the left breast have been obtained, reconstructed from 3-D Tomosynthesis images. R2 computer aided detection program utilized for evaluation of suspicious masses and/or abnormal calcifications. 3-D Tomosynthesis images obtained. Findings: Scattered areas of fibroglandular density. Again noted unchanged focal asymmetry posterior depth left breast CC view nipple level Impression: BI-RADS category 3: Probably benign findings Recommend continued 6 month follow-up left mammogram
== END | disposition home or self-care (01) ==
LOC: CDIM 08:46
PROVIDERS: Referring Provider Nurse Practitioner; Visit Provider Nurse Practitioner
DX: R92.332 Mammographic heterogeneous density, left breast (principal)
CPT/HCPCS: 76641; 77061; 77065; G0279

== ENCOUNTER 2025-08-29 12:01 | Emergency (ER) | payer MEDICARE, MEDICAID, SELFPAY ==
--- NOTE | 2025-08-29 12:10 | XR_ITS ---
EXAMINATION: PA lateral chest 2 views TECHNIQUE: Upright PA lateral chest 2 views Date and time: August 29, 2025, 1240 hours INDICATIONS: Choking shortness of breath today FINDINGS: Normal heart size Accentuation basilar bronchovascular markings. No lobar pneumonia The osseous structures are demineralized IMPRESSION: Negative for aspiration pneumonia
--- NOTE | 2025-08-29 12:16 | PD.EDADULT ---
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 The patient is awake alert EMS report oxygen saturations of 97% on room air with mild hypertension. Related Data Home Medications ?Medication ?Instructions ?Recorded ?Confirmed sertraline 50 mg tablet (Zoloft) 50 mg PO HS #0 tabs 01/24/14 04/05/25 calcium 600 mg (as 1 tab PO BID 08/15/22 04/05/25 carbonate)-vitamin D3 10 mcg (400 unit) tablet oxybutynin chloride 5 mg tablet 1 tab PO BID 08/15/22 04/05/25 omeprazole 40 mg capsule,delayed 40 mg PO QDAY 04/05/25 04/05/25 release Allergies Allergy/AdvReac Type Severity Reaction Status Date / Time No Known Allergies Allergy Verified 08/29/25 13:10 Review of Systems Review of Systems ROS Unobtainable: unobtainable due to mental status Past Medical History Past Medical History NEUROLOGIC: Negative Neurological Disorders or Seizures CARDIAC: Negative Cardiac Disorders, Congestive Heart Failure or Hypertension RESPIRATORY: Negative Chronic Obstructive Pulmonary Disease (COPD), Asthma, Sleep Apnea, Smoking or Smoking Exposure GASTROINTESTINAL: Positive Gastrointestinal Disorders (Dysphagia) GENITOURINARY: Positive Genitourinary Disorders (incont.); Negative Renal Disease MUSCULOSKELETAL: Positive Musculoskeletal Disorders and Osteoporosis ENT: Positive Cataracts and Deafness (wears hearing aids) ENDOCRINE: Negative Endocrine Disorders, Diabetes Mellitus Type 1 or Diabetes Mellitus Type 2 HEMATOLOGIC: Negative Blood Disorders or Anemia OTHER HISTORY: Positive Developmental Delay; Negative Hospitalization, Falls, Blood Transfusions, Anesthesia Reactions or Cancer Surgical History SURGICAL: Negative Cardiac Surgery or Endocrine Surgery Social History SMOKING STATUS: Never smoker ED Exam Narrative Physical exam: [General: Thin but not emaciated appears not in any acute distress Head normocephalic HEENT: Eyes pupils are PERRLA EOMs are intact mouth pink dry membranes uvula is midline swallow symmetrical all of the subsystems of HEENT are within acceptable limits Neck is supple nontender Chest equal chest rise nontender to palpation Respiratory: Clear to auscultation no wheezes crackles or rubs CV: Rate rhythm is regular no murmurs rubs or clicks Abdomen is flat, soft nontender no masses positive bowel sounds all 4 quadrants Back: No CVA tenderness no spinous process tenderness from cervical spine thoracic and lumbar spine Skin: Intact no petechiae rash induration ulceration or crepitus Extremities: Moving all extremity against resistance cap refill less than 2 seconds neurosensory intact Neuro: Awake alert oriented x1, self, Glascow coma 15 no focal deficits] Course Course Course Narrative: Repeat chest x-ray at 1544 shows no new consolidation or component of aspiration. Patient's oxygen saturations and remained stable we will discharge her home with her care provider. Quality Measures none Orders Category Date Time Status Saline [Insert IV] NOW Care 08/29/25 12:49 Active XR chest 1V Stat Exams 08/29/25 15:18 Taken XR chest 2V Stat Exams 08/29/25 12:10 Completed CBC Stat Lab 08/29/25 13:00 Completed CMP [Comprehensive Metabolic Panel] Stat Lab 08/29/25 13:00 Completed PT [Prothrombin Time with INR] Stat Lab 08/29/25 13:00 Completed PTT [Partial Thromboplastin Time] Stat Lab 08/29/25 13:00 Completed hydrALAZINE INJ [Apresoline Inj] Med 08/29/25 12:50 Discontinued 10 mg IVP X1 ONE Vital Signs Vital signs: Vital Signs Temperature 97.7 F 08/29/25 12:17 Pulse Rate 70 08/29/25 12:17 Respiratory Rate 18 08/29/25 12:17 Blood Pressure 199/64 H 08/29/25 12:17 Pulse Oximetry (%) 95 08/29/25 12:17 Oxygen Delivery Method Room Air 08/29/25 12:17 Discharge Plan Plan Patient Disposition: HOME (Self Care) Patient condition on transfer: Stable Prescriptions/Referrals Prescriptions/Med Rec: No Action omeprazole 40 mg capsule,delayed release(DR/EC) 40 mg PO QDAY sertraline [Zoloft] 50 MG tablet 50 mg PO HS Qty: 0 oxybutynin chloride 5 mg tablet 1 tab PO BID Patient Comments: TAKE 1 TABLET BY MOUTH TWICE A DAY calcium carbonate-vitamin D3 600 mg-10 mcg (400 unit) tablet 1 tab PO BID Patient Comments: TAKE 1 TABLET BY MOUTH TWICE A DAY Referrals: Carmen Interiano FNP [Primary Care Provider] - In 1 week Problem List Clinical Impression: Choking Patient/Caregiver Discharge Instructions Other Activity Instructions:: Follow-up with your primary care. if there is any issue shortness of breath or difficulty breathing return the emergency room immediately for further evaluation. Print Language: Khmer Stand Alone Forms: [employer] Award Info., Work/School Release, Patient Portal Info Letter GELA/BLANCO Supervising Physician GELA/BLANCO Supervising Physician: Horacio Bond ENP [facility] Clinical Information Provided by: patient and EMS Medical Records reviewed [facility] and EMS Meds/Rx considered, not ordered None Labs/Rad/Tests considered, not ordered None Chronic Illness/Social Conditions which may negatively complicate care or outcome(s)-explain: Developmentally delayed EKG EKG not done Labs Labs: interpreted by me Imaging Imaging interpretation: interpreted by me Medication Administration(s) Medication Administration History Discontinued Medications Hydralazine HCl (Hydralazine Inj 20 Mg/Ml Vial) 10 mg IVP X1 ONE Stop: 08/29/25 12:51 Last Admin: 08/29/25 13:06 Dose: 10 mg Documented By: ZENY
[2025-08-29 12:17] VITALS: BP 199/64; PULSE 70; RESP 18; TEMP 36.5; O2SAT 95
[2025-08-29 13:06] VITALS: BP 205/92; PULSE 68
[2025-08-29] MEDS: hydrALAZINE INJ 20 MG/ML VIAL 10 MG IVP (13:06)
[2025-08-29 13:11] VITALS: PULSE 69; O2SAT 97
[2025-08-29 13:17] LABS: Basophils # (Auto) 0.0 Thou/mm3 (0.0-0.2); Basophils % (Auto) 0 % (0-2.5); Eosinophils # (Auto) 0.2 Thou/mm3 (0.0-0.5); Eosinophils % (Auto) 3 % (0-10); Hematocrit 37.5 % (36.0-46.0); Hemoglobin 12.3 g/dL (12.0-16.0); Immature Granulocytes Auto 0.02 Thou/mm3 (0.00-0.00); Lymphocytes # (Auto) 1.6 Thou/mm3 (1.0-4.8); Lymphocytes % (Auto) 28 % (10-50); Mean Corpuscular HGB Conc 32.8 g/dl (31.0-37.0); Mean Corpuscular Hemoglobin 28.8 pg (25.0-35.0); Mean Corpuscular Volume 88 fL (80-100); Monocytes # (Auto) 0.3 Thou/mm3 (0.0-0.8); Monocytes % (Auto) 6 % (0-12); Neutrophils # (Auto) 3.4 Thou/mm3 (1.8-7.7); Neutrophils % (Auto) 62 % (37-80); Nucleated Red Blood Cell # 0.00 Thou/mm3 (0.00-0.00); Nucleated Red Blood Cell % 0 /100 WBC (0); Platelet Count 157 Thou/mm3 (140-440); RDW Standard Deviation 45.9 fL (36.4-46.3); Red Blood Count 4.27 Miln/mm3 (4.00-5.20); White Blood Count 5.6 Thou/mm3 (3.6-11.0)
[2025-08-29 13:38] LABS: Alanine Aminotransferase 8 U/L (10-49); Albumin, Serum 4.6 gm/dL (3.4-4.8); Albumin/Globulin Ratio 1.7 (1.2-2.2); Alkaline Phosphatase 34 U/L (46-116); Anion Gap 8 (7-16); Aspartate Amino Transferase 21 U/L (0-34); BUN/Creatinine Ratio 24 Ratio (12-20); Bilirubin,Total 0.2 mg/dL (0.3-1.2); Blood Urea Nitrogen 22 mg/dL (9-23); Calcium 9.9 mg/dL (8.3-10.6); Calcium (Corrected) 9.9 mg/dL (8.5-10.1); Carbon Dioxide 31.1 mMol/L (20.0-31.0); Chloride 105 mMol/L (98-107); Creatinine (Component) 0.9 mg/dL (0.6-1.3); Globulin 2.7 gm/dL (2.3-3.5); Glucose 111 mg/dL (74-106); INR 0.9 (0.9-1.3); Osmolality,Calculated 291 (275-295); Partial Thromboplastin Time 27.2 Seconds (22.0-36.0); Potassium 4.3 mMol/L (3.4-5.1); Prothrombin Time 10.1 Seconds (9.0-12.2); Sodium 144 mMol/L (136-145); Total Protein 7.3 gm/dL (5.7-8.2); eGFR > 60 See Note
--- NOTE | 2025-08-29 15:18 | XR_ITS ---
EXAMINATION: AP chest single view TECHNIQUE: AP portable upright chest single view Date and time: August 29, 2025, 1522 hours, comparison August 29, 2025 INDICATIONS: Cough and congestion today. FINDINGS: Normal heart size More pronounced opacity left base, consider early aspiration pneumonia No pulmonary edema Severe osteopenia IMPRESSION: More pronounced opacity left base, consider early aspiration pneumonia
[2025-08-29 15:29] VITALS: BP 174/86; PULSE 76; RESP 16; TEMP 36.7; O2SAT 96
[2025-08-29 16:18] VITALS: BP 154/62; PULSE 73; RESP 20; TEMP 36.9; O2SAT 96
--- NOTE | 2025-08-29 16:21 | PC.NURSE ---
PT DISCHARGED HOME VIA PRIVATE VEHICLE ACCOMPANIED BY CAREGIVER; PT AMB TO ED ENTRANCE. IV DC'D W/O DIFFICULTY; PT TOLERATED WELL. D/C INST GIVEN TO CAREGIVER W/ UNDERSTNADING EXPRESSED AND QUESTIONS ANSWERED.
== END 2025-08-29 16:21 | disposition home or self-care (01) ==
PROVIDERS: Registered Nurse General Practice; Emergency Provider Family Medicine; PCP Nurse Practitioner
DX: R09.89 Other specified symptoms and signs involving the circulatory and respiratory systems (principal); I10 Essential (primary) hypertension
CPT/HCPCS: 36415; 71045; 71046; 80053; 85025; 85610; 85730; 96374; 99283; J0360